=== PATIENT | female | born 1980 | race Caucasian/White ===

== ENCOUNTER 2019-04-15 23:28 | Emergency (ER) | payer BC ==
[~2019-04-15] VITALS: Ht 160 cm; Wt 85.3 kg
[2019-04-15 23:40] VITALS: Ht 160 cm; Wt 85.3 kg
--- NOTE | 2019-04-16 01:16 | ERD ---
ER Documentation Chief Complaint Chief Complaint c/o vaginal spotting since today,just found out she is ,LMP 04/01/19 HPI The patient is a 38-year-old female, presenting to the ER because of pelvic pain/vaginal spotting today, she just found out that she is today. She denies fever, chills, syncope, near syncope, neck pain, chest pain, dyspnea, abdominal pain, vomiting, dysuria, diarrhea. She does not smoke nor drink, 2 para 1 1 Past medical history: Hypothyroidism ROS All systems reviewed and are negative except as per history of present illness. Allergies Allergies: Coded Allergies: No Known Allergy (Unverified , 04/16/19) PMhx/Soc Medical and Surgical Hx: pt denies Medical Hx, pt denies Surgical Hx History of Surgery: No Anesthesia Reaction: No Hx Neurological Disorder: No Hx Respiratory Disorders: No Hx Cardiac Disorders: No Hx Psychiatric Problems: No Hx Miscellaneous Medical Probl: No Hx Alcohol Use: No Hx Substance Use: No Hx Tobacco Use: No Smoking Status: Never smoker Physical Exam Vitals Vital Signs Date Temp Pulse Resp B/P (MAP) Pulse Ox O2 O2 Flow FiO2 Time Delivery Rate 04/16/19 74 17 124/64 98 Room Air 04:19 (84) 04/15/19 98.4 57 17 115/53 98 23:40 (73) Physical Exam Const: No acute distress. Head: Atraumatic. Eyes: Normal Conjunctiva. ENT: Normal External Ears, Nose and Mouth. Neck: Full range of motion. No meningismus. Resp: Clear to auscultation bilaterally. Cardio: Regular rate and rhythm. Abd: Soft, non distended, normal bowel sounds, non tender. Skin: No petechiae or rashes. Back: No midline or flank tenderness. Ext: No cyanosis, or edema. Neur: Awake and alert. No focal deficit Psych: Normal Mood and Affect. Result Diagram: 04/16/19 0123 Results 24 hrs Laboratory Tests Test 04/16/19 01:23 04/16/19 01:26 White Blood Count 9.0 10^3/ul Red Blood Count 4.01 10^6/ul Hemoglobin 12.3 g/dl Hematocrit 37.0 % Mean Corpuscular Volume 92.3 fl Mean Corpuscular Hemoglobin 30.7 pg Mean Corpuscular Hemoglobin Concent 33.2 g/dl Red Cell Distribution Width 13.6 % Platelet Count 235 10^3/UL Mean Platelet Volume 10.6 fl Immature Granulocytes % 0.200 % Neutrophils % 59.8 % Lymphocytes % 26.9 % Monocytes % 10.5 % Eosinophils % 2.0 % Basophils % 0.6 % Nucleated Red Blood Cells % 0.0 /100WBC Immature Granulocytes # 0.020 10^3/ul Neutrophils # 5.4 10^3/ul Lymphocytes # 2.4 10^3/ul Monocytes # 0.9 10^3/ul Eosinophils # 0.2 10^3/ul Basophils # 0.1 10^3/ul Nucleated Red Blood Cells # 0.0 10^3/ul Urine Color YELLOW Urine Clarity SLIGHTLY CLOUDY Urine pH 6.0 Urine Specific [place] 1.018 Urine Ketones NEGATIVE mg/dL Urine Nitrite NEGATIVE mg/dL Urine Bilirubin NEGATIVE mg/dL Urine Urobilinogen NEGATIVE mg/dL Urine Leukocyte Esterase NEGATIVE [place]/ul Urine Microscopic RBC > 182 /HPF Urine Microscopic WBC 6 /HPF Urine Squamous Epithelial Cells FEW /HPF Urine Bacteria FEW /HPF Urine Hemoglobin 3+ mg/dL Urine Glucose NEGATIVE mg/dL Urine Total Protein NEGATIVE mg/dl Beta HCG, Quantitative 12.7 mIU/ml POC Beta HCG, Qualitative NEGATIVE Procedures/[place] [id number] Radiology Main Line: [phone] DIAGNOSTIC IMAGING REPORT Patient: ANNE ADAMS : 1980 Age: 38 Sex: F MR #: [id number] DOS: 04/16/19 0105 Ordering MD: ENEDINA ANGEL MD Location: E/R Room/Bed: PROCEDURE: US OB < 14 weeks. CLINICAL INDICATION: Pelvic pain TECHNIQUE: Multiple sonographic images of the pelvis were obtained. The images were reviewed on a PACS workstation. COMPARISON: None FINDINGS: The uterus is retroverted and measures 8.5 x 5.2 x 5.8 cm. Endometrium measures 7 mm thickness. There is no visible intrauterine . There is a 15 mm subserosal fibroid at the uterine fundus. The right ovary measures 3.8 x 2.6 x 2.0 cm and the left ovary measures 3 x 1 by 1.7 x 1.7 cm. The ovaries demonstrate appropriate echotexture and vascularity. No adnexal lesions are identified. There is no pelvic free fluid IMPRESSION: 1. No visible intrauterine . Findings may indicate very early or spontaneous . Although no suspicious adnexal lesions are identified, the possibility of ectopic is not definitively excluded. Recommend correlation with serum beta HCG levels, ultrasound follow-up as clinically warranted. 2. Both ovaries appear normal. No pelvic free fluid. RPTAT: [facility] Physician Angelina Date Time Electronically viewed and signed by Physician Angelina on 04/16/2019 03:08 xB/ CC: ENEDINA ANGEL MD [id number] MEDICAL MAKING DECISION: The patient is a 38-year-old female, presenting with acute pelvic pain of unclear etiology, possibly early versus metrorrhagia The differential diagnoses considered include but are not limited to early , metrorrhagia, cystitis, PID Departure Diagnosis: Primary Impression: Pelvic pain Additional Impression: Vaginal spotting Condition: Good Comments I discussed the findings with the patient. I advised the patient to follow-up with the primary physician in about 1-2 days, sooner if needed and return if any concern. Disclaimer: Inadvertent spelling and grammatical errors are likely due to EHR/dictation software use and do not reflect on the overall quality of patient care. Also, please note that the electronic time recorded on this note does not necessarily reflect the actual time of the patient encounter. ENEDINA ANGEL MD Apr 16, 2019 01:16
[2019-04-16 04:19] VITALS: BP 124/64; PULSE 74; RESP 17
== END 2019-04-16 04:20 | disposition home or self-care (01) ==
LOC: E/R 23:28
DX: O26.851 Spotting complicating pregnancy, first trimester (principal); R10.2 Pelvic and perineal pain; O26.891 Other specified pregnancy related conditions, first trimester; Z3A.00 Weeks of gestation of pregnancy not specified
CPT/HCPCS: 36415; 76801; 76817; 81001; 81025; 84702; 85025